=== PATIENT | male | born 1985 | race Caucasian/White ===

== ENCOUNTER 2018-09-17 10:02 | Emergency (ER) | payer SELFPAY ==
[~2018-09-17] VITALS: Ht 177.8 cm; Wt 93.5 kg
[~2018-09-17 10:02] MED LIST: ERYT1OIN6 LEFT EYE; OXYC-279 PO
[2018-09-17 10:05] VITALS: BP 139/86; PULSE 57; RESP 20; Ht 177.8 cm; Wt 93.5 kg
--- NOTE | 2018-09-17 10:43 | ERD ---
ER Documentation Chief Complaint Chief Complaint left eye redness and pain HPI 33-year-old male presents with complaint of left eye redness and pain since 2 days ago. States that it started after he was applying paint to his ceiling and he thinks he got some dust in his eye. Denies any visual problems. Denies any discharge from the eye. States that he has been using [id number] eyewash but has not relieved the symptoms. Denies contact lens use or glasses use. ROS All systems reviewed and are negative except as per history of present illness. Medications Home Meds Active Scripts Oxycodone HCl/Acetaminophen (Percocet 5-325 mg Tablet) 1 Each Tablet, 1 EACH PO Q6, #10 TAB Prov:STEPHANIE EASON 09/17/18 Erythromycin Base (Erythromycin) 1 Gm Oint...g., 1 APPLIC LEFT EYE QID for 7 Days Prov:STEPHANIE EASON 09/17/18 Allergies Allergies: Coded Allergies: No Known Allergy (Unverified , 09/17/18) PMhx/Soc Medical and Surgical Hx: pt denies Medical Hx, pt denies Surgical Hx Hx Alcohol Use: No Hx Substance Use: No Hx Tobacco Use: No Smoking Status: Never smoker FmHx Family History: No diabetes, No coronary disease, No other Physical Exam Vitals Vital Signs Date Temp Pulse Resp B/P (MAP) Pulse Ox O2 O2 Flow FiO2 Time Delivery Rate 09/17/18 98.8 57 20 139/86 98 10:05 (103) Physical Exam Const: No acute distress Head: Atraumatic Eyes: Normal Conjunctiva ENT: Normal External Ears, Nose and Mouth. Neck: Full range of motion. No meningismus. Resp: Clear to auscultation bilaterally Cardio: Regular rate and rhythm, no murmurs Abd: Soft, non tender, non distended. Normal bowel sounds Skin: No petechiae or rashes Back: No midline or flank tenderness Ext: No cyanosis, or edema Neur: Awake and alert Psych: Normal Mood and Affect Results 24 hrs Current Medications Medications Dose Sig/Beny Start Time Status Last (Trade) Ordered Route PRN Stop Time Admin Dose Reason Admin 1 applic ONCE ONCE 09/17/18 DC 09/17/18 Erythromycin LEFT EYE 11:00 11:20 09/17/18 11:01 (Erythromycin Oph Oint) Tetracaine 1 drop ONCE ONCE 09/17/18 DC HCl LEFT EYE 11:00 (Tetracaine 09/17/18 11:01 0.5% Steri-Unit Armida) Fluorescein 1 strip ONCE ONCE 09/17/18 DC Sodium LEFT EYE 11:00 (Ghhgo-T-Aedy 09/17/18 11:01 p) Procedures/MDM Eye Exam w/ Wood's Lamp - bilateral: Visual Acuity: WNL Visual [place]: Intact in all four quadrants bilaterally Lac ducts/glands: No swelling Lids w/ evertion: Normal, no foreign body Conj/Nunez: L eye .5mm abrasion noted, negative Fluorescein/Miriam's Anterior Chamber: Clear Tonopen readings: 20 Retina exam: No obvious abnormality MDM: Given patient's complaint of Loly possible pain getting the eye, I was irrigated and pH was taken. pH was within normal limits. Villar lamp exam showed possible corneal abrasion. Explained to patient that corneal ulcer cannot be definitively ruled out this time therefore patient will need to take antibiotics and follow-up with [facility] within 24 hours. All this was explained with hotbed operator present. Patient agreed and understood and said he will be following up with [facility] within 24 hours. In addition patient's visual acuity is within normal limits. Low suspicion bacterial conjunctivitis, corneal ulcer, retained eye foreign body, glaucoma, periorbital cellulitis, orbital cellulitis, hordeolum, dacrocystitis, globe rupture. At this time, patient is stable for discharge and outpatient management. I have instructed the patient to follow-up with his/her primary care physician in 1-2 days. I have discussed with the patient the possibility of needing to see a specialist for further workup and imaging studies if symptoms persist. I have instructed the patient to promptly return to the ER for any new or worsening symptoms including but not limited to increased pain, fever, nausea, vomiting, weakness or LOC. The patient and/or family expressed understanding of and agreement with this plan. All questions were answered. Home care instructions were provided. Communication with patient both during the exam and instructions for discharge were performed with using a wellhead pumper . Patient gave verbal confirmation to the practitioner, through the wellhead pumper, that they understood everything that was being said to them. DISCLAIMER: Inadvertent spelling and grammatical errors are likely due to EHR/dictation software use and do not reflect on the overall quality of patient care. Also, please note that the electronic time recorded on this note does not necessarily reflect the actual time of the patient encounter. Departure Diagnosis: Primary Impression: Keratitis Additional Impression: Eye injury Condition: Stable STEPHANIE EASON Sep 17, 2018 10:43
[2018-09-17] MEDS ORDERED: TETRACAINE 0.5% 4 ML OPH LEFT EYE ONE (11:00)
[2018-09-17] MEDS ORDERED: FLUORESCEIN STRIP LEFT EYE ONE (11:00)
[2018-09-17] MEDS ORDERED: ERYTHROMYCIN 1 GM OPH OINT LEFT EYE ONE (11:00)
== END 2018-09-17 12:26 | disposition home or self-care (01) ==
LOC: FTE 10:02
DX: S05.92XA Unspecified injury of left eye and orbit, initial encounter (principal); H16.9 Unspecified keratitis; X58.XXXA Exposure to other specified factors, initial encounter; Y92.9 Unspecified place or not applicable
CPT/HCPCS: 99283